=== PATIENT | female | born 1960 | race Caucasian/White ===

== ENCOUNTER 2018-11-01 11:12 | Inpatient (IN) | payer MEDICAID ==
[~2018-11-01] VITALS: Ht 165.1 cm; Wt 69.9 kg
--- NOTE | 2018-11-01 11:15 | NUR ---
PATIENT AMBULATED TO ER BED 8.
[2018-11-01 11:21] VITALS: BP 108/57
--- NOTE | 2018-11-01 12:00 | NUR ---
PT C/O DIZZINESS AND 4/10 HEADACHE X 2 DAYS. ALSO C/O FEET TINGLING AND LIP TINGLING. HAS HAD VERTIGO IN PAST BUT STATES IT FEELS DIFFERENT. PT STATES SHE WENT TO HER DR THIS MORNING AND HER DR RECOMMENDED SHE VISIT THE ER DUE TO ABNORMAL TEST IN THE CLINIC. PT IS UNSTEADY WHILE WALKING AND PREFERS TO HAVE HER EYES CLOSED DURING ASSESSMENT. DENIES CHEST PAIN AND SOB. BEDRAILS UP X2; BED DOWN. ER MD MADE AWARE OF PT STATUS.
--- NOTE | 2018-11-01 12:38 | NUR ---
DR. ERVIN EVALUATING PATIENT AT BEDSIDE.
[2018-11-01] MEDS ORDERED: LORazepam 2 MG/ML VIAL IVP ONE (12:45)
[2018-11-01] MEDS ORDERED: ONDANSETRON 4 MG/2 ML VIAL IVP ONE (12:45)
[2018-11-01] MEDS ORDERED: MECLIZINE 25 MG TAB PO ONE (12:45)
[2018-11-01] MEDS ORDERED: ASPIRIN 81 MG TAB.CHEW PO ONE (12:45)
[2018-11-01 13:29] LABS: BASOPHILS % (AUTO) 0.6 % (0.0-2.0); EOSINOPHILS # (AUTO) 0.1 K/uL (0-0.4); EOSINOPHILS % (AUTO) 1.6 % (0.0-4.0); HEMATOCRIT 36.7 % (36-48); HEMOGLOBIN 12.1 g/dL (12.0-16.0); LYMPHOCYTES # (AUTO) 1.4 K/uL (2.5-16.5); LYMPHOCYTES % (AUTO) 25.4 % (20.5-51.1); MEAN CORPUSCULAR HEMOGLOBIN 29 pg (27-31); MEAN CORPUSCULAR HGB CONC 33 g/dL (33-37); MEAN CORPUSCULAR VOLUME 87.6 fL (80-94); MONOCYTES # (AUTO) 0.2 K/uL (0.8-1.0); MONOCYTES % (AUTO) 4.6 % (1.7-9.3); NEUTROPHILS # (AUTO) 3.7 K/uL (1.8-7.7); NEUTROPHILS % (AUTO) 67.8 % (42.2-75.2); PLATELET COUNT (AUTO) 223 K/uL (140-450); RED BLOOD CELL COUNT(AUTO) 4.19 MIL/uL (4.20-5.40); RED CELL DISTRIBUTION WIDTH 13.9 % (11.6-13.7); WHITE BLOOD COUNT (AUTO) 5.4 K/uL (4.8-10.8)
[2018-11-01 13:45] LABS: PROTHROMBIN TIME 9.4 secs (10.8-13.4)
[2018-11-01 13:48] LABS: ANION GAP 9.2 (8-16); CARBON DIOXIDE 28.3 mmol/L (21-32); POTASSIUM 3.5 mmol/L (3.5-5.1)
[2018-11-01 13:49] LABS: ALBUMIN 3.5 g/dL (3.4-5.0); CREATININE 0.5 mg/dL (0.6-1.3); TOTAL BILIRUBIN 0.6 mg/dL (0.0-1.0)
--- NOTE | 2018-11-01 14:11 | NUR ---
PT IS CURRENTLY SLEEPING IN [facility]. S.
[2018-11-01 14:14] LABS: FREE T4 (FREE THYROXINE) 0.99 ng/dL (0.76-1.46); THYROID STIMULATING HORMONE 1.2 uIU/mL (0.34-3.74)
[2018-11-01 14:20] LABS: D-DIMER < 100 ng/ml (0-400)
--- NOTE | 2018-11-01 16:30 | NUR ---
PT IS CURRENTLY SLEEPING. NO DISTRESS NOTED. VSS.
[2018-11-01] MEDS: NACL 0.9% 1,000 ML IV SCH (18:03)
[2018-11-01] MEDS ORDERED: DOCUSATE SODIUM 100 MG GELCAP PO PRN (18:05)
[2018-11-01] MEDS ORDERED: ONDANSETRON 4 MG/2 ML VIAL IM/IVP PRN (18:05)
[2018-11-01] MEDS ORDERED: ACETAMINOPHEN 325 MG TAB PO PRN (18:05)
[2018-11-01] MEDS ORDERED: HYDROcodone/APAP 7.5/325 MG 1 TAB PO PRN (18:05)
[2018-11-01 18:34] LABS: CHOL/HDL RATIO 2.4 (1-4.5); PHOSPHORUS 3.5 mg/dL (2.5-4.9)
[2018-11-01 19:00] VITALS: BP 100/61
--- NOTE | 2018-11-01 19:00 | NUR ---
RECEIVED PT VIA GURNEY FROM ER NURSE, PT IS AWAKE AND ALERT, AMBULATED TO THE BED, WITH A PERIPHERAL LINE ON THE LEFT AC G.20, ON SALINE LOCK, INTACT. VITAL SIGNS TAKEN AND WITHIN NORMAL LIMIT, PT DENIES PAIN, NO SOB AND NO SIGN OF DISTRESS NOTED.
--- NOTE | 2018-11-01 19:01 | NUR ---
Patient will be admitted to care of dr. clark. Admited to tele. Will go to room 119a. Belongings list completed. Report to lia lundberg.
--- NOTE | 2018-11-01 19:20 | NUR ---
MRSA SWAB DONE TO PT, SAMPLE ENDORSED TO ART INSTALLER NURSE, SUMMER.
--- NOTE | 2018-11-01 19:25 | NUR ---
RECEIVED BEDSIDE REPORT FROM AVERY BAZZI. PATIENT IN BED, AAOX4, ABLE TO FOLLOW COMMANDS, ON RA, IV IN LEFT AC 22 G SL. V/S TAKEN, ADMISSION QUESTIONS ANSWERED. PLACED PATIENT ON FALL RISK PRECAUTIONS, EXPLAINED PLAN OF CARE, UPDATED BORED, WILL CONTINUE TO MONITOR.
--- NOTE | 2018-11-01 19:25 | NUR ---
ENDORSED PT TO STITCHING MACHINE SETTER NURSE, SUMMER FOR CONTINUITY OF THE ADMISSION PROCESS.
[2018-11-01] MEDS ORDERED: ACET-2619 PO (19:42)
[2018-11-01] MEDS ORDERED: IBUP-1842 PO (19:42)
[2018-11-01] MEDS ORDERED: MECLIZINE 25 MG TAB PO PRN (19:55)
[2018-11-01 20:00] VITALS: BP 117/69
--- NOTE | 2018-11-01 21:29 | NUR ---
PATIENT C/O HEADACHE, ADMINISTERED NORCO ACCORDING TO MD ORDER.
[2018-11-01] MEDS ORDERED: NICOTINE TRANSD SYS 14 MG/24 HR PATCH TD SCH (23:25)
--- NOTE | 2018-11-01 23:43 | NUR ---
PLACED NICOTINE PATCH ON RIGHT SHOULDER.
[2018-11-02] VITALS (10 sets, daily range): BP systolic 97–122; BP diastolic 46–70
--- NOTE | 2018-11-02 03:00 | NUR ---
SLEEPING IN BED, IV INFUSING NS AT 100 ML/HR. CALL LIGHT WITHIN REACH.
[2018-11-02] MEDS: NACL 0.9% 1,000 ML IV SCH ×3 (04:33→23:22)
--- NOTE | 2018-11-02 04:45 | NUR ---
PATIENT SLEEPING IN BED, NO SIGNS OF DISTRESS, WILL CONTINUE TO MONITOR.
[2018-11-02 06:51] LABS: BASOPHILS % (AUTO) 1.3 % (0.0-2.0); EOSINOPHILS # (AUTO) 0.2 K/uL (0-0.4); EOSINOPHILS % (AUTO) 4.7 % (0.0-4.0); HEMATOCRIT 36.1 % (36-48); HEMOGLOBIN 11.8 g/dL (12.0-16.0); LYMPHOCYTES # (AUTO) 1.5 K/uL (2.5-16.5); LYMPHOCYTES % (AUTO) 41.8 % (20.5-51.1); MEAN CORPUSCULAR HEMOGLOBIN 29 pg (27-31); MEAN CORPUSCULAR HGB CONC 33 g/dL (33-37); MEAN CORPUSCULAR VOLUME 88.4 fL (80-94); MONOCYTES # (AUTO) 0.3 K/uL (0.8-1.0); MONOCYTES % (AUTO) 8.2 % (1.7-9.3); NEUTROPHILS # (AUTO) 1.6 K/uL (1.8-7.7); PLATELET COUNT (AUTO) 202 K/uL (140-450); RED BLOOD CELL COUNT(AUTO) 4.08 MIL/uL (4.20-5.40); RED CELL DISTRIBUTION WIDTH 13.8 % (11.6-13.7); WHITE BLOOD COUNT (AUTO) 3.5 K/uL (4.8-10.8)
[2018-11-02 07:14] LABS: ANION GAP 12.1 (8-16); CARBON DIOXIDE 29.3 mmol/L (21-32); POTASSIUM 4.4 mmol/L (3.5-5.1)
[2018-11-02 07:15] LABS: CREATININE 0.6 mg/dL (0.6-1.3)
--- NOTE | 2018-11-02 07:26 | NUR ---
ENDORSED PATIENT TO DAY SHIFT NURSE, PATIENT STABLE.
--- NOTE | 2018-11-02 07:30 | NUR ---
RECEIVED BEDSIDE REPORT FROM PRESS ASSISTANT AND FEEDER RN. PATIENT IN RESTING IN BED, AAOX4. SKIN INTACT. DENIES PAIN. DENIES PALPITATIONS. C/O OF VERTIGO. STATES THAT "ROOM IS SPINNING". DENIES N/V. VITALS STABLE. IV SITE PATENT AND ASYMPTOMATIC, INFUSING IVF PER MD ORDERS. UPDATED BOARD AND EXPLAINED POC. PT VERBALIZED COMPLETE UNDERSTANDING. ALL SAFETY PRECAUTIONS IN PLACE, WILL CONTINUE TO MONITOR.
--- NOTE | 2018-11-02 07:57 | NUR ---
ANTIVERT ADMINISTERED FOR PT C/O ROOM SPINNING.
[2018-11-02] MEDS: ECOTRIN 81 MG TABEC PO SCH (08:01)
--- NOTE | 2018-11-02 08:46 | NUR ---
PATIENT HAS BEEN SCREENED AND CATEGORIZED LOW NUTRITION RISK. PATIENT WILL BE SEEN WITHIN 7 DAYS OF ADMISSION. 11/08/[address]
--- NOTE | 2018-11-02 08:55 | NUR ---
PT SLEEPING IN BED, ONE HOUR AFTER ANTIVERT ADMINISTRATION.
--- NOTE | 2018-11-02 09:38 | NUR ---
INFORMED PHYSICAL THERAPY THAT PT WAS C/O VERTIGO THIS MORNING AND ANTIVERT WAS ADMINISTERED. PT WILL ATTEMPT TO OBTAIN ORTHOSTATIC HYPOTENSION VALUES.
--- NOTE | 2018-11-02 11:44 | NUR ---
NOTIFIED DR. ROMANO THAT PATIENT IS STILL C/O ROOM SPINNING WHILE SITTING IN BED. GAVE ORTHOSTATIC HYPOTENSION VALUES TO
[2018-11-02] MEDS ORDERED: MECLIZINE 25 MG TAB PO PRN (11:50)
--- NOTE | 2018-11-02 14:28 | NUR ---
PT SITTING UP IN BED. STATES THAT SHE FEELS "MUCH BETTER". NO C/O SIGNIFICANT DIZZINESS. ALL SAFETY PRECAUTIONS IN PLACE, WILL CONTINUE TO MONITOR.
--- NOTE | 2018-11-02 16:42 | NUR ---
ADMINISTERED ANTIVERT FOR PT C/O DIZZINESS. Addendum: 11/02/18 at 1653 by Karma Mcdaniel Meng, RN EXPLAINED TO PATIENT THAT HAS INCREASED THE DOSAGE. PT VERBALIZED COMPLETE UNDERSTANDING.
[2018-11-02] MEDS ORDERED: NICOTINE TRANSD SYS 14 MG/24 HR PATCH TD SCH (16:51)
--- NOTE | 2018-11-02 17:40 | NUR ---
PT SLEEPING IN BED, ONE HOURS AFTER ANTIVERT ADMINISTERED.
--- NOTE | 2018-11-02 19:13 | NUR ---
ENDORSED POC TO HEAD LOADER RN AT BEDSIDE. PT IN STABLE CONDITION.
--- NOTE | 2018-11-02 19:14 | NUR ---
RECEIVED REPORT FROM DAY SHIFT RN. PT IS A&OX4. DAUGHTER IS AT BEDSIDE. RESPIRATIONS ARE EQUAL AND UNLABORED. LUNG SOUNDS ARE CLEAR. C/C OF VERTIGO. PT DENIES DIZZINESS, OR HEART PALPITATIONS AT THIS TIME. SKIN IS INTACT. HAS IV ON LAC 20G INFUSING NS AT 100ML/H. PLAN OF CARE EXPLAINED TO PT. PENDING CONSULT WITH MD CHATTERJEE. SAFETY MEASURES ARE IN PLACE. CALL LIGHT WITHIN REACH.
--- NOTE | 2018-11-02 20:29 | NUR ---
VITAL SIGNS ARE WITHIN NORMAL LIMITS. DUE MEDICATION GIVEN. PT TOLERATED WELL. SAFETY MEASURES ARE IN PLACE. CALL LIGHT WITHIN REACH. WILL CONTINUE TO MONITOR.
[2018-11-02] MEDS ORDERED: ZOLPIDEM 5 MG TAB PO SCH (21:00)
--- NOTE | 2018-11-02 23:22 | NUR ---
NEW BAG OF IVF INFUSING PER ORDERS. VITAL SIGNS ARE WITHIN NORMAL LIMITS. PT DENIES ANY SOB OR PAIN AT THIS TIME. SAFETY MEASURES ARE IN PLACE. CALL LIGHT WITHIN REACH.
--- NOTE | 2018-11-03 02:23 | NUR ---
PT ASLEEP. RESPIRATIONS ARE EQUAL AND UNLABORED. SAFETY MEASURERS ARE IN PLACE. CALL LIGHT WITHIN REACH.
[2018-11-03 04:00] VITALS: BP 103/48
--- NOTE | 2018-11-03 04:00 | NUR ---
VITAL SIGNS ARE WITHIN NORMAL LIMITS. DENIES ANY PAIN.SAFETY MEASURES ARE IN PLACE. CALL LIGHT WITHIN REACH.
--- NOTE | 2018-11-03 06:04 | NUR ---
PT IS SLEEPING COMFORTABLY IN BED. CALL LIGHT WITHIN REACH.
[2018-11-03 07:07] LABS: BASOPHILS % (AUTO) 0.7 % (0.0-2.0); EOSINOPHILS # (AUTO) 0.1 K/uL (0-0.4); EOSINOPHILS % (AUTO) 3.6 % (0.0-4.0); HEMATOCRIT 35.4 % (36-48); HEMOGLOBIN 11.6 g/dL (12.0-16.0); LYMPHOCYTES # (AUTO) 1.4 K/uL (2.5-16.5); LYMPHOCYTES % (AUTO) 37.5 % (20.5-51.1); MEAN CORPUSCULAR HEMOGLOBIN 29 pg (27-31); MEAN CORPUSCULAR HGB CONC 33 g/dL (33-37); MEAN CORPUSCULAR VOLUME 88.6 fL (80-94); MONOCYTES # (AUTO) 0.3 K/uL (0.8-1.0); MONOCYTES % (AUTO) 7.4 % (1.7-9.3); NEUTROPHILS # (AUTO) 1.9 K/uL (1.8-7.7); NEUTROPHILS % (AUTO) 50.8 % (42.2-75.2); PLATELET COUNT (AUTO) 213 K/uL (140-450); WHITE BLOOD COUNT (AUTO) 3.7 K/uL (4.8-10.8)
[2018-11-03 07:14] LABS: ANION GAP 11.4 (8-16); CARBON DIOXIDE 28.1 mmol/L (21-32); CREATININE 0.6 mg/dL (0.6-1.3); POTASSIUM 4.5 mmol/L (3.5-5.1)
[2018-11-03 07:20] LABS: MAGNESIUM 2.1 mg/dL (1.8-2.4); PHOSPHORUS 3.5 mg/dL (2.5-4.9)
--- NOTE | 2018-11-03 07:23 | NUR ---
ENDORSED TO DAY SHIFT RN. PT IN STABLE CONDITION.
--- NOTE | 2018-11-03 07:24 | NUR ---
RECEIVED BEDSIDE REPORT FROM MANAGER ADVANCED NURSE. PATIENT AAOX4. NO SIGNS OF RESPIRATORY DISTRESS, ON RA. PATIENT AMBULATES WITH ASSIST TO BATHROOM. CONTINENT OF BOWEL AND BLADDER. SKIN INTACT. IV ON L AC 20 G INFUSING NS AT 100. FALL RISK PROTOCOL IN PLACE. BED IN LOW POSITION, CALL LIGHT WITHIN REACH. WILL CONTINUE TO MONITOR.
[2018-11-03 08:00] VITALS: BP 102/50
[2018-11-03] MEDS ORDERED: NICOTINE TRANSD SYS 14 MG/24 HR PATCH TD SCH (09:00)
--- NOTE | 2018-11-03 09:00 | NUR ---
PATIENT WATCHING TV. NO DISTRESS NOTED. WILL CONTINUE TO MONITOR.
[2018-11-03] MEDS: ECOTRIN 81 MG TABEC PO SCH (09:18)
[2018-11-03] MEDS ORDERED: MECL-272 PO (10:20)
--- NOTE | 2018-11-03 10:20 | NUR ---
PATIENT AMBULATED TO BATHROOM FOR URINE SAMPLE WITH LITTLE TO NO ASSISTANCE. WILL CONTINUE TO MONITOR.
--- NOTE | 2018-11-03 10:30 | NUR ---
URINE SAMPLE SENT TO LAB.
[2018-11-03] MEDS: NACL 0.9% 1,000 ML IV SCH (10:48)
--- NOTE | 2018-11-03 11:30 | NUR ---
PATIENT EATING LUNCH. NO DISTRESS NOTED. WILL CONTINUE TO MONITOR.
[2018-11-03 12:00] VITALS: BP 101/47
--- NOTE | 2018-11-03 12:00 | NUR ---
PATIENT EATING LUNCH. NO DISTRESS NOTED ON RA. WILL CONTINUE TO MONITOR.
[2018-11-03 12:38] LABS: BILIRUBIN,URINE NEGATIVE (NEGATIVE); BLOOD, URINE TRACE-I (NEGATIVE); COLOR,URINE YELLOW (YELLOW); LEUKOCYTE ESTERASE ,URINE TRACE (NEGATIVE); NITRITE, URINE POSITIVE (NEGATIVE); UGLUCOSE NEGATIVE (NEGATIVE)
[2018-11-03 12:39] LABS: APPEARANCE,URINE SLIGHTLY HAZY (CLEAR)
[2018-11-03 12:53] LABS: RBC,URINE 0-5 (RARE) /HPF (0-5); WBC,URINE 0-5 (RARE) /HPF (0-5)
[2018-11-03 12:58] LABS: BARBITURATE, URINE NEG. ng/ml (NEG <=200); BENZODIAZEPINE, URINE NEG. ng/mL (NEG <=200); CANNABINOID, URINE NEG. ng/mL (NEG <=50); COCAINE, URINE NEG. ng/mL (NEG <=300); OPIATE, URINE NEG. ng/mL (NEG <=2000); PHENCYCLIDINE SCREEN,URINE NEG. ng/mL (NEG <=25)
--- NOTE | 2018-11-03 14:17 | NUR ---
FAMILY AT BEDSIDE. PATIENT SITTING UP AND SPEAKING WITH FAMILY. NO DISTRESS NOTED. WILL CONTINUE TO MONITOR.
--- NOTE | 2018-11-03 14:57 | NUR ---
PATIENT SITTING IN BED WITH FAMILY AT BEDSIDE. NO DISTRESS NOTED. WILL CONTINUE TO MONITOR.
[2018-11-03 16:00] VITALS: BP 95/55
[2018-11-03] MEDS ORDERED: SULF-58 PO (16:27)
[2018-11-03] MEDS ORDERED: LACT10CA1 PO (16:27)
--- NOTE | 2018-11-03 17:00 | NUR ---
PATIENT SITTING IN BED WATCHING TV. NO DISTRESS NOTED. PATIENT STATED SOMEONE WILL PICK HER UP IN 1 HR.
--- NOTE | 2018-11-03 18:07 | NUR ---
EDUCATED PATIENT ON DISCHARGE INSTRUCTIONS. EDUCATED PATIENT TO FOLLOW UP W DR. PASTOR ON 11/06/18 AND TO FOLLOW UP WITH DR. LEÓN WITHIN 1 WEEK. PATIENT EDUCATED ON NEW PRESCRIPTIONS AND SIDE EFFECTS OF MEDS. EDUCATED PATIENT TO RETURN TO ER WHEN SYMPTOMS WORSEN. NITRO PATCH REMOVED BEFORE DISCHARGE. PATIENT VERBALIZED UNDERSTANDING. WRIST BANDS REMOVED, IV REMOVED WITH TIP INTACT.
--- NOTE | 2018-11-03 18:45 | NUR ---
FAMILY HERE TO HEATING AND COOLING TECHNICIAN PATIENT. REMOVED TELE MONITOR. PATIENT LEFT IN WHEELCHAIR IN STABLE CONDITION. PNA AND FLU VACCINES REFUSED.
== END 2018-11-03 18:45 | disposition home or self-care (01) | DRG 48 ==
LOC: MED 11:12 → MTU 18:03
PROVIDERS: ADMIT General Practice; ATTEND General Practice
DX: G90.8 Other disorders of autonomic nervous system (principal); I50.43 Acute on chronic combined systolic (congestive) and diastolic (congestive) heart failure; I65.23 Occlusion and stenosis of bilateral carotid arteries; B19.20 Unspecified viral hepatitis C without hepatic coma; F17.210 Nicotine dependence, cigarettes, uncomplicated; E78.2 Mixed hyperlipidemia; Z83.3 Family history of diabetes mellitus; Z90.49 Acquired absence of other specified parts of digestive tract; Z79.899 Other long term (current) drug therapy; N39.0 Urinary tract infection, site not specified
CPT/HCPCS: 36415; 70450; 71045; 80048; 80053; 80305; 81001; 82140; 82150; 83036; 83690; 83735; 83880; 84100; 84439; 84443; 84479; 84484; 85025; 85379; 85610; 85730; 87081; 87086; 93005; 93880; 96374; 96375; 97110; 97116; 97530; 99285; J2060; J2405; J7030; J8597; Q0092

== ENCOUNTER 2020-07-19 14:16 | Emergency (ER) | payer MEDICAID ==
[~2020-07-19] VITALS: Ht 167.6 cm; Wt 74.8 kg
[~2020-07-19 14:16] MED LIST: ACET-2619 PO; IBUP-1842 PO; LACT10CA1 PO; MECL-311 PO; SULF-58 PO
[2020-07-19 14:23] VITALS: BP 114/76
[2020-07-19] MEDS: KETOROLAC 30 MG/ML VIAL IM ONE (15:21)
[2020-07-19 15:58] LABS: BASOPHILS # (AUTO) 0.1 K/uL (0.00-0.22); EOSINOPHILS # (AUTO) 0.3 K/uL (0-0.4); EOSINOPHILS % (AUTO) 5.3 % (0.0-4.0); HEMATOCRIT 33.9 % (36-48); HEMOGLOBIN 11.4 g/dL (12.0-16.0); LYMPHOCYTES # (AUTO) 1.2 K/uL (2.5-16.5); MEAN CORPUSCULAR HEMOGLOBIN 29 pg (27-31); MEAN CORPUSCULAR HGB CONC 34 g/dL (33-37); MEAN CORPUSCULAR VOLUME 87.7 fL (80-94); MONOCYTES # (AUTO) 0.3 K/uL (0.8-1.0); MONOCYTES % (AUTO) 6.5 % (1.7-9.3); NEUTROPHILS # (AUTO) 3.4 K/uL (1.8-7.7); NEUTROPHILS % (AUTO) 64.2 % (42.2-75.2); PLATELET COUNT (AUTO) 259 K/uL (140-450); RED BLOOD CELL COUNT(AUTO) 3.86 MIL/uL (4.20-5.40); RED CELL DISTRIBUTION WIDTH 13.9 % (11.6-13.7); WHITE BLOOD COUNT (AUTO) 5.3 K/uL (4.8-10.8)
[2020-07-19 16:04] LABS: ANION GAP 13.2 (8-16); CARBON DIOXIDE 25.5 mmol/L (21-32); CREATININE 0.6 mg/dL (0.6-1.3); POTASSIUM 3.7 mmol/L (3.5-5.1)
[2020-07-19 16:07] LABS: PROTHROMBIN TIME 9.4 secs (10.8-13.4)
[2020-07-19 16:59] VITALS: BP 112/81
== END 2020-07-19 16:59 | disposition home or self-care (01) ==
LOC: MED 14:16
DX: M17.11 Unilateral primary osteoarthritis, right knee (principal); R21 Rash and other nonspecific skin eruption; Z90.49 Acquired absence of other specified parts of digestive tract; Z79.899 Other long term (current) drug therapy
CPT/HCPCS: 36415; 73562; 80048; 85025; 85610; 85730; 96372; 99284; J1885; Q0092

== ENCOUNTER 2021-03-14 16:29 | Emergency (ER) | payer MEDICAID ==
[~2021-03-14] VITALS: Ht 167.6 cm; Wt 65.8 kg
[2021-03-14 16:32] VITALS: BP 143/120
--- NOTE | 2021-03-14 16:37 | NUR ---
Patient ambulated to bed 2. RN evaluating the patient at bedside.
--- NOTE | 2021-03-14 16:52 | NUR ---
60 Y/O FEMALE C/O UPPER BACK PAIN X1 MONTH BUT WORSENING IN THE PAST 3 DAYS. PATIENT ALSO COMPLAINING OF MILD HEADACHE. PT RATES PAIN 5/10 THAT SHE DESCRIBES PINS/PULSING. PT STATES ITS WORSE WHILE LAYING DOWN. PT STATED THAT SHE SAW HER DR LAST WEEK AND RECEIVED AN INJECTION FOR THE PAIN BUT IT DIDNT WORK. PT DENIES N/V/SOB. PT STATES PAIN INCREASES WHEN TAKES A DEEP BREATH. SPO2 98% RA. PT A/O X4 WITH EVEN AND UNLABORED RESPIRATIONS. PT LAYING IN BED WITH BED IN LOWEST POSITION, BRAKES LOCKED, X1 SIDERAIL UP. PMH: DENIES, HEP C X3 YRS AGO. NKA
--- NOTE | 2021-03-14 17:14 | NUR ---
Dr. Delgado is evaluating the patient at bedside.
[2021-03-14] MEDS ORDERED: KETOROLAC 30 MG/ML VIAL IM ONE (17:25)
[2021-03-14] MEDS ORDERED: diazePAM 5 MG TAB PO ONE (17:25)
--- NOTE | 2021-03-14 17:38 | NUR ---
Pt taken to x-ray via w/c.
--- NOTE | 2021-03-14 17:50 | NUR ---
PT BACK FROM RAD
[2021-03-14 18:02] LABS: ANION GAP 10.3 (8-16); CARBON DIOXIDE 26.5 mmol/L (21-32); CREATININE 0.7 mg/dL (0.6-1.3); POTASSIUM 3.8 mmol/L (3.5-5.1)
--- NOTE | 2021-03-14 18:31 | NUR ---
PT AMBULATED TO RESTROOM FOR URINE SAMPLE
--- NOTE | 2021-03-14 19:10 | NUR ---
REPORT GIVEN TO SABA VARELA, TRANSFER OF CARE AT THIS TIME
[2021-03-14] MEDS ORDERED: NAPR-54 PO (19:12)
[2021-03-14] MEDS ORDERED: ALBU0.0912 IH (19:12)
--- NOTE | 2021-03-14 19:30 | NUR ---
RESTING COMFORTABLY IN NAD. DENIES PAIN AT THIS TIME
[2021-03-14 19:40] VITALS: BP 118/62
--- NOTE | 2021-03-14 19:40 | NUR ---
Patient discharged with v/s stable. Written and verbal after care instructions given and explained. Patient alert, oriented and verbalized understanding of instructions. Ambulatory with steady gait. All questions addressed prior to discharge. ID band removed. Patient advised to follow up with PMD. Rx of PROVENTIL HFA, NAPROSYN given. Patient educated on indication of medication including possible reaction and side effects. Opportunity to ask questions provided and answered.
== END 2021-03-14 19:40 | disposition home or self-care (01) ==
LOC: MED 16:29
DX: M54.6 Pain in thoracic spine (principal); R06.02 Shortness of breath; F17.210 Nicotine dependence, cigarettes, uncomplicated; Z79.899 Other long term (current) drug therapy
CPT/HCPCS: 36415; 71046; 80048; 81002; 85379; 96372; 99284; J1885

== ENCOUNTER 2021-05-18 13:40 | Emergency (ER) | payer MEDICAID ==
[~2021-05-18] VITALS: Ht 165.1 cm; Wt 81.6 kg
[~2021-05-18 13:40] MED LIST changes: +ALBU0.0912 IH; +NAPR-54 PO
[2021-05-18 13:46] VITALS: BP 115/75
--- NOTE | 2021-05-18 13:56 | NUR ---
PATIENT SENT TO LOBBY
[2021-05-18] MEDS ORDERED: KETOROLAC 15 MG/ML VIAL IM ONE (14:45)
--- NOTE | 2021-05-18 14:55 | NUR ---
Dr. Greco is evaluating the patient at bedside.
--- NOTE | 2021-05-18 15:00 | NUR ---
PT WAS TAKEN TO XRAY
--- NOTE | 2021-05-18 15:07 | NUR ---
60 Y/O F BIB FAMILY FROM HOME, PATIENT PRESENTS TO ED WITH L LEG PAIN THAT STARTS AT KNEE AND RADIATES TO L FOOT AND L HIP. PT STATES SHE WAS HIKING AND STEPPED INCORRECTLY AND HAD A MECHANICAL FALL, DENIES HEAD INJURY, LOC OR SYNCOPE. DENIES N/V/D; SKIN IS PINK/WARM/DRY; AAOX4 AMBUATES WITH PAIN, PT IS ABLE TO FLEX AND EXTEND LEG, CAP REFILL <3, NO LAC PRESENT, UNABLE TO REST FOOT ON BED DUE TO INCREASED PAIN WITH ELEVATION; LUNGS CLEAR BL; HR EVEN AND REGULAR; PT DENIES ANY FEVER, CP, SOB, OR COUGH AT THIS TIME; PATIENT STATES PAIN OF 10/10 AT THIS TIME; VSS; PATIENT POSITIONED FOR COMFORT; HOB ELEVATED; BEDRAILS UP X2; BED DOWN. ER MD MADE AWARE OF PT STATUS. PMH: HEP C, HYPOTENSION NKA MED: IBUPROFEN 900MG AROUND 1100
[2021-05-18 16:52] VITALS: BP 115/75
--- NOTE | 2021-05-18 16:53 | NUR ---
Patient discharged with v/s stable. Written and verbal after care instructions given and explained. Patient verbalized understanding. Ambulatory with to car. All questions addressed prior to discharge. Advised to follow up with PMD.
== END 2021-05-18 16:53 | disposition home or self-care (01) ==
LOC: MED 13:40
DX: M25.562 Pain in left knee (principal); M54.5 Low back pain; F17.210 Nicotine dependence, cigarettes, uncomplicated; Z71.6 Tobacco abuse counseling; Z79.899 Other long term (current) drug therapy; W01.0XXA Fall on same level from slipping, tripping and stumbling without subsequent striking against object, initial encounter; Y93.89 Activity, other specified; Y92.89 Other specified places as the place of occurrence of the external cause; Y99.8 Other external cause status
CPT/HCPCS: 72110; 73562; 96372; 99284; J1885

== ENCOUNTER 2021-06-23 18:03 | Emergency (ER) | payer MEDICAID ==
[~2021-06-23] VITALS: Ht 165.1 cm; Wt 83.9 kg
[2021-06-23 18:13] VITALS: BP 121/75
[2021-06-23] MEDS ORDERED: KETOROLAC 30 MG/ML VIAL IM ONE (19:40)
--- NOTE | 2021-06-23 20:16 | NUR ---
PATIENT TAKEN TO US.
[2021-06-23] MEDS ORDERED: KETOROLAC 30 MG/ML VIAL ONE (20:59)
[2021-06-23] MEDS ORDERED: TRAM50TA1 PO (21:43)
[2021-06-23 22:05] VITALS: BP 118/72
== END 2021-06-23 22:05 | disposition home or self-care (01) ==
LOC: MED 18:03
DX: I87.2 Venous insufficiency (chronic) (peripheral) (principal); M79.605 Pain in left leg; Z88.5 Allergy status to narcotic agent; Z88.6 Allergy status to analgesic agent; Z79.899 Other long term (current) drug therapy
CPT/HCPCS: 93971; 96372; 99284; J1885

== ENCOUNTER 2022-01-23 08:37 | Emergency (ER) | payer MEDICAID ==
[~2022-01-23] VITALS: Ht 165.1 cm; Wt 70.8 kg
[~2022-01-23 08:37] MED LIST changes: +TRAM50TA1 PO
[2022-01-23 08:41] VITALS: BP 128/48
--- NOTE | 2022-01-23 08:52 | NUR ---
PT W/C ASSISTED TO ER BED 2.
--- NOTE | 2022-01-23 09:10 | NUR ---
DR VALENZUELA AT BEDSIDE
[2022-01-23] MEDS ORDERED: KETOROLAC 30 MG/ML VIAL IM ONE (09:15)
--- NOTE | 2022-01-23 09:19 | NUR ---
RADIOLOGY AT BEDSIDE
--- NOTE | 2022-01-23 09:33 | NUR ---
61 Y/O FEMALE C/O HEADACHE, RIGHT LOWER LEG PAIN X 3 DAYS, UPPER BACK PAIN X 2 WEEKS, AND LEFT KNEE PAIN X 6 MONTHS. DENIES TRAUMA/INJURY. DENIES FEVER/CHILLS. DENIES N/V. COVID TESTED POSITIVE 12/26/21. PMH: HEP C TREATED, LUMBAR DISC HERNIATION, AND OSTEOARTHRITIS ALLERGIES: ACETAMINOPHEN, HYRDOCODONE
[2022-01-23 10:07] VITALS: BP 128/48
--- NOTE | 2022-01-23 10:08 | NUR ---
Patient discharged with INFORMATION FOR OSTEOARTHRITIS AND TENSION HEADACHE v/s stable. Written and verbal after care instructions given and explained. Patient verbalized understanding. Ambulatory with steady gait. All questions addressed prior to discharge. Advised to follow up with PMD.
--- NOTE | 2022-01-23 10:12 | NUR ---
The patient's care was reviewed and supervised by Paula Beltran RN.
== END 2022-01-23 10:07 | disposition home or self-care (01) ==
LOC: MED 08:37
DX: G44.209 Tension-type headache, unspecified, not intractable (principal); M17.9 Osteoarthritis of knee, unspecified; M79.604 Pain in right leg; M54.2 Cervicalgia; M54.6 Pain in thoracic spine; M25.512 Pain in left shoulder; F17.210 Nicotine dependence, cigarettes, uncomplicated; Z88.6 Allergy status to analgesic agent; Z88.5 Allergy status to narcotic agent
CPT/HCPCS: 73590; 96372; 99283; J1885; Q0092

== ENCOUNTER 2023-04-01 17:26 | Emergency (ER) | payer MEDICAID ==
[~2023-04-01] VITALS: Ht 165.1 cm; Wt 80.7 kg
[~2023-04-01 17:26] MED LIST changes: +TRAM-748 PO; -TRAM50TA1 PO
[2023-04-01 17:32] VITALS: BP 137/90
--- NOTE | 2023-04-01 17:36 | NUR ---
PT AMB USING WALKER TO BED 5
--- NOTE | 2023-04-01 18:05 | NUR ---
KIMI MANSFIELD AT BEDSIDE FOR EVALUATION
[2023-04-01] MEDS ORDERED: PROCHLORPERAZINE 10 MG/2 ML VIAL IVP ONE (18:15)
[2023-04-01] MEDS ORDERED: NACL 0.9% 500 ML IV ONE (18:15)
--- NOTE | 2023-04-01 18:20 | NUR ---
62YO FEMALE PT C/O PRESSURED/THROBBING HEADACHE AND THROAT PAIN [id number]. REPORTS SUDDEN INTERMITTENT ONSETS. STATES THROAT PAIN ON SWALLOWING. THROAT PINK W/O SWELLING. +NAUSEA. DENIES V/D,FEVER,CHILLS, SOB OR RELIEF AFTER OTC MEDICATION. PT AAOX4. AMB USING WALKER HX:DENIES ALLERGIES: TYLENOL, HYDROCODONE
[2023-04-01] MEDS ORDERED: KETOROLAC 30 MG/ML VIAL IVP ONE ×2 (19:20→20:00)
--- NOTE | 2023-04-01 19:20 | NUR ---
REPORT GIVEN TO JAMES RN. TRANSFER OF CARE AT THIS TIME
[2023-04-01] MEDS ORDERED: BENZ-300 PO (20:18)
[2023-04-01] MEDS ORDERED: IBUP-2213 PO (20:18)
[2023-04-01 20:31] VITALS: BP 132/90
--- NOTE | 2023-04-01 20:31 | NUR ---
Patient discharged with v/s stable. Written and verbal after care instructions given and explained. Patient alert, oriented and verbalized understanding of instructions. Ambulatory with steady gait. All questions addressed prior to discharge. ID band removed. Patient advised to follow up with PMD. Rx of Benzocaine and Ibuprofen given. Patient educated on indication of medication including possible reaction and side effects. Opportunity to ask questions provided and answered.
== END 2023-04-01 20:31 | disposition home or self-care (01) ==
LOC: MED 17:26
DX: R51.9 Headache, unspecified (principal); J02.9 Acute pharyngitis, unspecified; Z88.5 Allergy status to narcotic agent; Z88.8 Allergy status to other drugs, medicaments and biological substances; Z79.899 Other long term (current) drug therapy
CPT/HCPCS: 70450; 96374; 96375; 99285; J0780; J1885; J7030

== ENCOUNTER 2023-10-29 14:47 | Emergency (ER) | payer MEDICAID ==
[~2023-10-29] VITALS: Ht 165.1 cm; Wt 89.8 kg
[~2023-10-29 14:47] MED LIST changes: +BENZ-300 PO; +IBUP-2213 PO; -MECL-311 PO; +[UNRECOGNIZED DRUG - CODE] PO
[2023-10-29 14:55] VITALS: BP 98/78; PULSE 80; RESP 18; TEMP 98; O2SAT 98
[2023-10-29] MEDS ORDERED: KETOROLAC 60 MG/2 ML VIAL IM ONE (15:35)
[2023-10-29] MEDS ORDERED: IBUP-2213 PO (15:48)
[2023-10-29 16:02] VITALS: BP 98/78; PULSE 80; RESP 18; TEMP 98; O2SAT 98
== END 2023-10-29 16:04 | disposition home or self-care (01) ==
LOC: MED 14:47
DX: R10.13 Epigastric pain (principal); Z79.899 Other long term (current) drug therapy; Z79.1 Long term (current) use of non-steroidal anti-inflammatories (NSAID); Z79.2 Long term (current) use of antibiotics; Z88.8 Allergy status to other drugs, medicaments and biological substances; Z88.5 Allergy status to narcotic agent
CPT/HCPCS: 81002; 96372; 99283; J1885

== ENCOUNTER 2024-05-25 15:58 | Emergency (ER) | payer MEDICAID ==
[~2024-05-25] VITALS: Ht 165.1 cm; Wt 88.0 kg
[~2024-05-25 15:58] MED LIST changes: +NAPR-337 PO; -NAPR-54 PO
[2024-05-25 16:29] VITALS: BP 112/44; PULSE 67; RESP 18; TEMP 98.2; O2SAT 98
[2024-05-25] MEDS: methocarbamoL 500 MG TAB PO ONE (18:03)
[2024-05-25] MEDS: KETOROLAC 60 MG/2 ML VIAL IM ONE (18:03)
[2024-05-25] MEDS ORDERED: IBUP-2213 PO (18:49)
[2024-05-25] MEDS ORDERED: METH-1681 PO (18:49)
[2024-05-25 18:50] VITALS: BP 117/62; PULSE 62; RESP 16; TEMP 98; O2SAT 99
== END 2024-05-25 18:50 | disposition home or self-care (01) ==
LOC: MED 15:58
DX: S39.012A Strain of muscle, fascia and tendon of lower back, initial encounter (principal); Z79.1 Long term (current) use of non-steroidal anti-inflammatories (NSAID); Z79.899 Other long term (current) drug therapy; Z88.5 Allergy status to narcotic agent; Z88.6 Allergy status to analgesic agent; X58.XXXA Exposure to other specified factors, initial encounter; Y93.89 Activity, other specified; Y92.89 Other specified places as the place of occurrence of the external cause; Y99.8 Other external cause status
CPT/HCPCS: 72100; 96372; 99283; J1885